=== PATIENT | female | born 1985 | race Caucasian/White ===

== ENCOUNTER → 2016-07-11 | Outpatient (CLI) | payer OTHER ==
[~2016-07-11] MED LIST: BCPILLS PO
[2016-07-11 13:08] LABS: HEMATOCRIT 41.3 % (37-47); MEAN CORPUSCULAR HEMOGLOBIN 28.9 pg (25-34); MEAN CORPUSCULAR HGB CONC 32.4 g/dl (32-36); MEAN PLATELET VOLUME 10.4 fL (7.4-10.4); PLATELET COUNT 287 K/uL (130-400); RED BLOOD COUNT 4.64 M/uL (4.2-5.4); WHITE BLOOD COUNT 6.68 K/uL (4.8-10.8)
[2016-07-11 13:32] LABS: ALT/SGPT 16 U/L (12-78); BLOOD UREA NITROGEN 12 mg/dl (7-18); BUN/CREATININE RATIO 19.2 (10-20); CALCIUM 9.1 mg/dl (8.5-10.1); CARBON DIOXIDE 27 mmol/L (21-32); CHLORIDE 105 mmol/L (98-107); CREATININE 0.63 mg/dl (0.60-1.20); GLUCOSE 91 mg/dl (70-99); POTASSIUM 4.4 mmol/L (3.5-5.1); SODIUM 139 mmol/L (136-145)
[2016-07-11 13:43] LABS: ALB/GLOB RATIO 1.1 (0.9-2); ALKALINE PHOSPHATASE 86 U/L (45-117); AST/SGOT 9 U/L (15-37)
== END | disposition home or self-care (01) ==
LOC: C.LAB1850 11:56
PROVIDERS: ATTEND Family Medicine
DX: E66.3 Overweight (principal)

== ENCOUNTER 2023-11-25 21:36 | Inpatient (IN) ==
[2023-11-25] MEDS ORDERED: LIDOCAINE 1% LOCAL 20 ML VIAL INFIL PRN (22:09)
[2023-11-25] MEDS ORDERED: OXYTOCIN 30 UNITS/NSS 30 UNITS/500 ML BAG IV PRN (22:09)
--- NOTE | 2023-11-25 22:19 | Labor Progress Brief Note ---
Date of Service November 25, 2023 Subjective 38yo with SIUP @ 37w0d, preg c/b AMA, GDM diet controlled, [place] yhydramnios, and most recent growth scan showing EFW 75% and AC 93%. Prior x2 but most recent one in 2010, first one in 2016. Largest baby [id number]. ROM at home earlier today with onset of ctx this evening. Assessment & Plan (1) Gestational diabetes: (2) Supervision of elderly multigravida: (3) Polyhydramnios: (4) Normal labor: Plan: Pitocin augmentation recommended and accepted. Epidural available but not currently desired by patient. She has h/o successful natural childbirth and is planning for same with this child. GBS negative. GDM without insulin; will check baseline FSBG and not require further testing if <130 as she will be essentially NPO here until delivery. If elevated, insulin/D5 protocol. Physical Exam Genitourinary: /-2/soft/mid, EFW 7-8, FHT Cat 1 Reubens Q3-4 Results & Data Vital Signs (Past 12 Hours) Vital Signs Pulse BP 11/25/23 21:59 102 H 131/78 Coding Level of Care Code None Diagnoses Gestational diabetes O24.419 Supervision of elderly multigravida O09.529 Polyhydramnios O40.9XX0 Normal labor O80; Z37.9
[2023-11-25] MEDS: LACTATED RINGER'S 1,000 ML IV PRN (22:37)
[2023-11-25] MEDS: OXYTOCIN 30 UNITS/NSS 30 UNITS/500 ML BAG IV PRN (22:40)
[2023-11-25 22:49] LABS: Hematocrit (blood only) 33.2 % (37.0-47.0); Hemoglobin 10.4 g/dl (12.0-16.0); Mean Corpuscular Hemoglobin 24.9 pg (25.0-34.0); Mean Corpuscular Hgb Conc 31.3 g/dL (32.0-36.0); Mean Corpuscular Volume 79.4 fL (80.0-100.0); Mean Platelet Volume 10.6 fL (9.4-12.4); Platelet Count 293 K/uL (130-400); RDW Coefficient of Variation 14.3 % (11.5-14.5); RDW Standard Deviation 41.1 fL (36.4-46.3); Red Blood Count 4.18 M/uL (4.20-5.40); White Blood Count 12.57 K/ul (4.8-10.8)
--- NOTE | 2023-11-26 01:46 | Delivery Summary ---
Vaginal Delivery Summary Date of Service November 26, 2023 Vaginal Delivery Summary DIAGNOSES: 1. [place] intrauterine at 37wk gestation. 2. Spontaneous onset of labor. 3. Group B Streptococcus Neg. PROCEDURE: Spontaneous vaginal delivery without laceration. SURGEON: Lizeth Talavera MD. BREAKFAST COOK: None. ESTIMATED BLOOD LOSS: 150 mL. COMPLICATIONS: None. PLACENTA: Spontaneous and intact with a 3-vessel cord. DISPOSITION: Stable to labor and delivery. DESCRIPTION: I was called for delivery and arrived promptly from the call room. The patient was already pushing involuntarily, and loudly grunting and had brought the head (en caul with a fluid-filled forebag) to [facility]. I gowned/gloved and pushed the catch-bag fully under the patient's hips. The fully delivered in one servin motion with another involuntary push. The lower portion of the bed was still in place and the infant delivered directly onto it. I lifted baby up to Mom's abdomen, where the cord was doubly clamped and cut. The was vigorous and moving all extremities, and making respiratory efforts. The placenta delivered spontaneously and was noted to be intact and with a 3VC. The cervix, vagina and perineum were examined and were found to be without defect requiring repair. The fundus was firm and lochia minimal immediately after delivery. [facility] Vaginal Delivery Charge Vaginal Delivery Codes: 11567 global code for the antepartum, delivery, and post-
[2023-11-26] MEDS ORDERED: ACETAMINOPHEN 325 MG TAB PO PRN (02:16)
[2023-11-26] MEDS ORDERED: IBUPROFEN 600 MG TAB PO PRN (02:16)
[2023-11-26] MEDS ORDERED: bisacodyL 10 MG SUPP PR PRN (02:16)
[2023-11-26] MEDS ORDERED: oxyCODONE/ACETAMINOPHEN 5mg/325mg TAB PO PRN (02:16)
[2023-11-26] MEDS ORDERED: HYDROCORTISONE ACETATE 25 MG SUPP PR PRN (02:16)
[2023-11-26] MEDS ORDERED: OXYTOCIN 30 UNITS/NSS 30 UNITS/500 ML BAG IV PRN (02:16)
[2023-11-26] MEDS: DIPHTHER/TETAN/PERTUS Vaccine (Tdap, Adol/Adult) 0.5mL IM ONE (04:09)
[2023-11-26] MEDS: DOCUSATE SODIUM 100 MG CAP PO SCH (08:18)
[2023-11-26] MEDS: PRENATAL VITAMIN 1 TAB PO SCH (08:18)
[2023-11-26] MEDS: BENZOCAINE 20% SPRY 85 APPLN/85 GM CAN EXT PRN (08:19)
[2023-11-27 06:12] LABS: Hematocrit (blood only) 33.5 % (37.0-47.0); Hemoglobin 10.3 g/dl (12.0-16.0); Mean Corpuscular Hemoglobin 24.8 pg (25.0-34.0); Mean Corpuscular Hgb Conc 30.7 g/dL (32.0-36.0); Mean Corpuscular Volume 80.7 fL (80.0-100.0); Mean Platelet Volume 10.9 fL (9.4-12.4); Platelet Count 272 K/uL (130-400); RDW Coefficient of Variation 14.4 % (11.5-14.5); RDW Standard Deviation 42.3 fL (36.4-46.3); Red Blood Count 4.15 M/uL (4.20-5.40); White Blood Count 11.28 K/ul (4.8-10.8)
--- NOTE | 2023-11-27 06:13 | Obstetrical Progress Note ---
Date of Service <Talia García MD - Last Filed: 11/27/23 07:08> November 27, 2023 Assessment & Plan <Talia García MD - Last Filed: 11/27/23 07:08> (1) Encounter for assessment: visit type: exam and care immediately after delivery Qualified Code(s): Z39.0 - Encounter for care and examination of mother immediately after delivery (2) Gestational diabetes: Gestational diabetes mellitus control: diet-controlled Trimester: unspecified trimester Qualified Code(s): O24.410 - Gestational diabetes mellitus in , diet controlled Plan Pt is a 38 y/o female who is now PPD#1 following at 37 weeks. PPD 1: stable, routine management -Patient is voiding and ambulating on their own power -Pain is well controlled on as needed analgesia -Tolerating regular diet without nausea or vomiting -Planned to Breast feed * Anticipate d/c home today * 6 weeks OB outpatient follow-up <Lizeth Talavera MD - Last Filed: 11/27/23 07:21> (1) Encounter for assessment: (2) Gestational diabetes: Subjective <Talia García MD - Last Filed: 11/27/23 07:08> Ambulation: ambulating normally Voiding: no voiding problems Diet Tolerance:: regular diet Lochia:: Moderate Feeding Type:: breast feeding Pt is a 38 y/o female who is now PPD#1 following at 37 weeks. Reports feeling well overall this morning. minimal abdominal cramping and 2-3/10 pain, well managed on analgesics. Voiding ok. Tolerating meals and able to ambulate some. passing gas and having bowel movements. Some persistent lochia with over all improvement as of this morning. Breast feeding. Review of Systems -Denies fever or chills -Denies dyspnea, chest pain, or palpitations -Denies breast pain -Denies dysuria -Denies headache or changes in vision Physical Exam <Talia García MD - Last Filed: 11/27/23 07:08> General: Alert and oriented. No acute distress Cardiac: Regular rate and rhythm, no murmurs appreciated Respiratory: Lungs clear to auscultation bilaterally, No increased work of b reathing Abdominal: Soft, non-tender, non-distended. Bowel sounds present. Uterus: Uterine fundus firm, palpable below umbilicus Extremities: +1 lower extremity edema, calves non-tender bilaterally Results & Data <Talia García MD - Last Filed: 11/27/23 07:08> Vital Signs (Past 12 Hours) Vital Signs Temp Pulse Resp BP Pulse Ox O2 Del Method 11/26/23 23:30 36.5 C 84 18 117/76 97 Room Air 11/26/23 20:00 36.4 C L 88 16 114/68 97 Room Air Supervising Physician <Lizeth Talavera MD - Last Filed: 11/27/23 07:21> Co-Signing Physician Notes Resident Physician Supervision Note: I interviewed and examined the patient. Discussed with Dr. García and agree with findings and plan as documented in the note. Any exceptions or cl arifications are listed here: [ ] Documented By: Lizeth Talavera MD, FACOG Resident Activity Tracking <Talia García MD - Last Filed: 11/27/23 07:08> Resident Involvement: Resident Care Provided Care Provided: OB Delivery
[2023-11-27] MEDS ORDERED: bisacodyL 5 MG TABEC PO SCH (20:00)
== END 2023-11-27 13:50 | disposition home or self-care (01) | DRG 807 ==
LOC: OPB 21:36 → 4S1 21:38 → 4E2 11-26 04:08